=== PATIENT | female | born 1990 | race African-American/Black ===

== ENCOUNTER 2019-09-28 08:42 | Outpatient (RCR) | payer BC, SELFPAY ==
[2019-09-28 10:25] LABS: Hemoglobin 10.2 g/dL (12.0-15.0)
[2019-09-28 10:31] LABS: Glucose 1 Hour PP 50gm Dose 111 mg/dL
[2019-09-28 11:10] LABS: HIV 1/2 Ab P24 Ag Result Negative (Negative)
[2019-09-29 07:30] LABS: Rapid Plasma Reagin Non-Reactive (NonReactive)
[2019-09-29] MEDS: RHO(D) IMMUNE GLOBULIN 300 MCG SYRINGE IM (12:10)
== END 2019-12-27 23:59 | disposition home or self-care (01) ==
LOC: ANHLAB 08:42
PROVIDERS: Visit Provider Advanced Practice Midwife
DX: Z29.13 Encounter for prophylactic Rho(D) immune globulin (principal); Z11.4 Encounter for screening for human immunodeficiency virus [HIV]; O36.0130 Maternal care for anti-D [Rh] antibodies, third trimester, not applicable or unspecified; Z3A.00 Weeks of gestation of pregnancy not specified
CPT/HCPCS: 36415; 82947; 85014; 85018; 85461; 86592; 86703; 90384; 96372; G0432; J2790

== ENCOUNTER 2019-12-17 04:55 | Inpatient (IN) | payer BC, SELFPAY ==
[2019-12-17] VITALS (85 sets, daily range): BP systolic 80–133; BP diastolic 36–108; PULSE 56–109; RESP 12; TEMP 36.7–37.3; O2SAT 98–100; BMI 34.3
--- NOTE | 2019-12-17 04:55 | LDADM ---
This patient, Shirley Shetty, was admitted to Labor/Delivery/Recovery 107 on 12/17/19 at 04:55. Plans for labor, pain management and were discussed with patient. Patient/family oriented to hospital policies and general routines including ID bracelet, bed and alarms, visiting hours, pain management, procedures, bathroom and other care routines, personal items, smoking policy, room service/diet and guest tray routines, infant security routines, and visiting hours. Patient/Family are encouraged to report perceived risks to care and to ask questions if they do not understand what they are told or what they should do. See OBIX for further documentation.
[2019-12-17 05:44] LABS: Basophils Percent Auto 0.4 % (0.2-1.2); Eosinophils Absolute Auto 0.1 K/mm3 (0-0.3); Eosinophils Percent Auto 0.7 % (0-4.4); Hematocrit 33.7 % (37.0-47.0); Hemoglobin 11.4 g/dL (12.0-15.0); Immature Granulocyte Absolute 0.04 K/mm3 (0.00-0.031); Immature Granulocyte Percent A 0.4 % (0-0.5); Lymphocytes Absolute Auto 2.26 K/mm3 (0.9-3.2); Lymphocytes Percent Auto 22.9 % (18.3-44.2); Mean Corpuscular HGB Conc 33.8 g/dl (32-36); Mean Corpuscular Hemoglobin 28.6 pg (26-34); Mean Corpuscular Volume 84.5 fl (80-100); Mean Platelet Volume 11.7 fl (7.4-10.4); Monocytes Absolute Auto 0.7 K/mm3 (0.1-0.6); Monocytes Percent Auto 7.5 % (2.6-8.5); Neutrophils Absolute Auto 6.7 K/mm3 (1.3-6.7); Neutrophils Percent Auto 68.1 % (45.5-73.1); Platelet Count Result 215 k/mm3 (150-375); Red Blood Count 3.99 M/mm3 (4.2-5.4); Red Cell Distribution Width 13.3 % (11.5-14.5); White Blood Count 9.9 K/mm3 (4.5-10.0)
[2019-12-17] MEDS: ONDANSETRON INJ 4 MG/2 ML VIAL IV PUSH ×2 (05:48→14:34)
--- NOTE | 2019-12-17 08:09 | WPDOBADMIT ---
Obstetrics - Admit Note Admission Note: 29 y/o G1 here in spontaneous labor. Pt desires minimal intervention at this time Cervix 3/100/-2 per nurse exam Anticiapte record reviewed. No pertinent additions to the history and/or any subsequent changes in the physical findings that are not consistent with the expected course of the were found. Additions to the history and/or subsequent changes in the physical findings follow. None.
[2019-12-17] MEDS: LACTATED RINGERS 1,000 ML 125 ML IV CONT ×3 (08:37→14:34)
--- NOTE | 2019-12-17 09:13 | WPDANESEPP ---
Anes - Eval Pre Procedure Procedure: labor pain management Date/Time: 12/17/19 09:13 Surgeon: Louis Preop Diagnosis: Pain during labor Pre Op Diagnosis: Contractions Patient Data Age: 29 Gender: F Height: 5 ft 3 in Weight: 88 kg Last Vital Signs Pulse 77 12/17/19 05:32 BP 120/72 12/17/19 05:32 Allergies Allergy/AdvReac Type Severity Reaction Status Date / Time No Known Allergies Allergy Verified 11/24/19 13:38 Home Medications Medication Instructions Recorded Confirmed Type PNV cmb#95-ferrous fumarate-FA 1 tablet PO DAILY 11/24/19 11/24/19 History [] Laboratory Tests 12/17/19 12/17/19 12/17/19 05:32 05:32 05:32 WBC 9.9 K/mm3 K/mm3 (4.5-10.0) RBC 3.99 M/mm3 L M/mm3 (4.2-5.4) Hgb 11.4 g/dL L g/dL (12.0-15.0) Hct 33.7 % L % (37.0-47.0) MCV 84.5 fl fl (80-100) MCH 28.6 pg pg (26-34) MCHC 33.8 g/dl g/dl (32-36) RDW 13.3 % % (11.5-14.5) Plt Count 215 k/mm3 k/mm3 (150-375) MPV 11.7 fl H fl (7.4-10.4) Immature Gran % (Auto) 0.4 % % (0-0.5) Neut % (Auto) 68.1 % % (45.5-73.1) Lymph % (Auto) 22.9 % % (18.3-44.2) [place] % (Auto) 7.5 % % (2.6-8.5) Eos % (Auto) 0.7 % % (0-4.4) Baso % (Auto) 0.4 % % (0.2-1.2) Lymph # (Auto) 2.26 K/mm3 K/mm3 (0.9-3.2) [place] # (Auto) 0.7 K/mm3 H K/mm3 (0.1-0.6) Eos # (Auto) 0.1 K/mm3 K/mm3 (0-0.3) Baso # (Auto) 0.0 K/mm3 K/mm3 (0.0-0.1) Abs Immat Gran (auto) 0.04 K/mm3 H K/mm3 (0.00-0.031) Absolute Neuts (auto) 6.7 K/mm3 K/mm3 (1.3-6.7) Absolute Nucleated RBC 0.0 K/mm3 K/mm3 (0.0-0.012) Nucleated RBC % 0.0 % % (0.0-0.2) RPR Pending Blood Type B Negative Antibody Screen Negative : patient denies Patient hx anesthesia problems: none Family hx anesthesia problems: none PMF Family History Family History (Updated 11/24/19 @ 13:41 by Marina Maguire RN) Mother Cervical cancer Hypertension Grandparent Pancreas cancer Social History Social History Smoking status: Never smoker Substance use: never Spiritual care concerns: No Exam Day of Procedure 12/17/19 09:13
[2019-12-17] MEDS: PHENYLEPHRINE 1,000 MCG/10 ML SYRINGE 100 MCG IV PUSH (10:34)
--- NOTE | 2019-12-17 11:18 | PM.OBPNLAB ---
Pain Control Date/time seen: 12/17/19 11:18 Pt comfortable with epidural AROM moderate amount of light meconium stained fluid Peds notified Anticipate
[2019-12-17 12:45] LABS: Rapid Plasma Reagin Non-Reactive (NonReactive)
[2019-12-17] MEDS: OXYTOCIN 30 UNITS/NS 500 ML 30 UNITS/500 ML BAG 125 UNITS IV CONT (14:59)
--- NOTE | 2019-12-17 18:06 | PM.OBPRVD ---
OB - Delivery Note Procedure Delivery date: 12/17/19 events: Meconium Stained Fluid Intrapartal events: None Induction method: none Delivery augmentation: rupture of membranes Delivery monitor: external FHT and external uterine Episiotomy description: None Laceration description: Vaginal - 1st Degree Estimated blood loss (mL): 174 Anesthesia type: Epidural Baby Date of : 12/17/19 Time of : 17:44 Weeks of gestation at delivery: 40 gender: Male presentation: vertex position: Left Occiput Anterior Placenta delivery description: Spontaneous score one minute: 5 score five minutes: 8 Narrative: Meconium fluid. Peds present for delivery. At delivery infant had cord wrapped in hands. not vigorous at delivery. Cord clamped and handed off to nursery staff. Cord gasses collected and handed off to staff. Mother and baby in stable condition.
[2019-12-17] MEDS: WITCH HAZEL 40 PADS 1 PAD TOPICAL (19:59)
[2019-12-17] MEDS: BENZOCAINE 20% AER SPR (*SP) 56 GM CAN 1 SPRAY TOPICAL (19:59)
[2019-12-17] MEDS: IBUPROFEN 600 MG TABLET PO (20:44)
--- NOTE | 2019-12-17 21:37 | PC.NURSE ---
pt to floor per wheelchair accompanied by baby in crib and staff. Floor routines and plan of care explained to pt and she voices understanding. Mom encouraged to make needs and concerns known to staff.
[2019-12-18 05:34] LABS: Hemoglobin 9.3 g/dL (12.0-15.0)
[2019-12-18] MEDS: MULTIVIT/MIN/PREN/FOL AC/IRON TABLET 1 TAB PO (07:06)
[2019-12-18] MEDS: WITCH HAZEL 40 PADS 1 PAD TOPICAL (07:06)
[2019-12-18] MEDS: BENZOCAINE 20% AER SPR (*SP) 56 GM CAN 1 SPRAY TOPICAL (07:06)
[2019-12-18] MEDS: POLYSACCHARIDE IRON COMPLEX 150 MG CAPSULE PO ×2 (07:07→20:32)
[2019-12-18] MEDS: DOCUSATE SODIUM 100 MG CAPSULE PO ×2 (07:08→20:37)
[2019-12-18] MEDS: IBUPROFEN 600 MG TABLET PO ×3 (07:08→20:32)
[2019-12-18 07:31] VITALS: BP 105/75; PULSE 72; RESP 18; TEMP 36.5
--- NOTE | 2019-12-18 07:50 | PC.NURSE ---
Consulted with patient, mother reports infant is latching, he is on and off during feedings, she has some tenderness during feedings. Reviewed infant feeding cues, frequencies, duration of feedings, feeding elimination flow sheet, and signs of adequate intake. Demonstrated stimulation techniques to wake infant for feeding. Assisted with to breast. Demonstrated self expression, mother can freely express large amounts of colostrum. Reviewed positioning/alignment in cross cradle, holding breast in U hold and guided asymmetrical latch on. Discussed rational for each. Several attempts before was able to latch correctly. nursed eagerly, with steady draws and frequent swallowing noted. Reviewed signs of a correct latch, effective nursing and suck swallow ratio. would pull back during feedings. Advised to give slight resistance to keep infant at breast. Demonstrated how to adjust latch more deeply while feeding. Suggested to stimulate while feeding to keep awake and nursing effectively for increased intake and to assist with maintaining deep latch. was able to maintain latch without discomfort to mother. Nipple care reviewed. Instructed mother to call out for RN assistance if she is unable to latch infant for feeding or she has discomfort with nursing. Instructed feeding should be initiated three hours from start of last feeding or if feeding cues are noted before. Mother voiced understanding of information shared.
--- NOTE | 2019-12-18 07:55 | PM.OBPNVD ---
OB - PN: Subj Subjective Date/time seen: 12/18/19 07:55 Patient comments: no complaints, pain well controlled and other (Lochia similar to menses) [place] baby status: doing well OB - PN: Obj Data Labs CBC & Chem 7: 12/18/19 03:51 Labs: Laboratory Results - last 24 hr 12/17/19 12/18/19 12/18/19 05:32 03:51 03:51 Hgb 9.3 L Hct 27.0 L RPR Non-reactive Blood Type B Negative Antibody Screen TNP Screen Negative Baby's Blood Type B pos Baby's BILL Negative Doses of RhIg Required 1 OB - PN A/P Plan day: 1 (s/p vaginal delivery, doing well) Plan: routine care Time Spent With Patient Time: Total time spent is greater than 50% in coordination of care (as documented) at patient's floor/unit and/or counseling patient: Exam Const: General: no acute distress GI: Inspection: other (Fundus firm and nontender at umbilicus) GI Palp: Yes Soft to palpation and No Tenderness to palpation present (GI) Extrem: General: no edema
--- NOTE | 2019-12-18 10:17 | WPDANLDPN2 ---
Anes-Prog Note L&D Date/Time: 12/18/19 10:17 Comfortable throughout: labor Neuraxial method: epidural Epidural/Spinal procedure site: clean & non-tender Neuro status: Neuro function grossly intact. Cardiovascular status: normal Respiratory status: normal Airway patency: baseline Mental status: baseline Post-Op hydration status: normal Vital Signs: Last Vital Signs Temp 97.7 F 12/18/19 07:31 Pulse 72 12/18/19 07:31 Resp 18 12/18/19 07:31 BP 105/75 12/18/19 07:31 Pulse Ox 99 12/17/19 10:26 I/O: Intake & Output 12/17/19 12/18/19 12/18/19 23:59 07:59 15:59 Intake Total 1100 Output Total 685 Balance 415 Post-procedural complaints: none Patient feedback: Patient satisfied with anesthetic care.
[2019-12-18] MEDS: RHO(D) IMMUNE GLOBULIN 300 MCG SYRINGE IM (13:24)
--- NOTE | 2019-12-18 14:15 | PC.NURSE ---
Upon entering mother has to breast, with correct positioning/alignment. Infant is latched deeply nursing with long draws and freq swallowing noted. Reviewed transition to breast milk, signs of adequate intake, and engorgement/relief. Instructed to call ICP if intake/output less than required. Reviewed regular medications mother is taking. Information provided per Marlys. Reviewed community resources on the [facility] website and in the Mom/Baby guide. Information on outpatient services provided. Mother has no further questions at this time.
[2019-12-18 20:40] VITALS: BP 101/61; PULSE 82; RESP 16; TEMP 36.8; O2SAT 100
[2019-12-19] MEDS: IBUPROFEN 600 MG TABLET PO ×2 (05:31→14:08)
[2019-12-19 08:00] VITALS: BP 104/66; PULSE 72; RESP 18; TEMP 36.8
--- NOTE | 2019-12-19 08:00 | PC.NURSE ---
Patient viewed the discharge video Mother & Baby Care, The First Two Weeks . Patient was given the opportunity and encouraged to ask questions. Patient verbalized understanding of information shared and has been given the mother/baby guide for home reference.
[2019-12-19] MEDS: DOCUSATE SODIUM 100 MG CAPSULE PO (08:27)
[2019-12-19] MEDS: WITCH HAZEL 40 PADS 1 PAD TOPICAL (08:27)
[2019-12-19] MEDS: BENZOCAINE 20% AER SPR (*SP) 56 GM CAN 1 SPRAY TOPICAL (08:27)
[2019-12-19] MEDS: POLYSACCHARIDE IRON COMPLEX 150 MG CAPSULE PO (08:27)
[2019-12-19] MEDS: MULTIVIT/MIN/PREN/FOL AC/IRON TABLET 1 TAB PO (08:28)
--- NOTE | 2019-12-19 10:33 | P.PNOB_ITS ---
OB - PN: Subj Subjective Date/time seen: 12/19/19 10:33 Patient comments: no complaints, pain well controlled and other (Lochia similar to menses) [place] baby status: doing well OB - PN: Obj Data Labs CBC & Chem 7: 12/18/19 03:51 Labs: Laboratory Results - last 24 hr 12/18/19 03:51 Blood Type B Negative Antibody Screen TNP Screen Negative Baby's Blood Type B pos Baby's BILL Negative Doses of RhIg Required 1 OB - PN A/P Plan day: 2 (s/p vaginal delivery, doing well) Plan: routine care, discharge home and other (Follow up in office in 4 weeks) Time Spent With Patient Time: Total time spent is greater than 50% in coordination of care (as documented) at patient's floor/unit and/or counseling patient: Exam Const: General: no acute distress GI: Inspection: other (Fundus firm and nontender below umbilicus) GI Palp: Yes Soft to palpation and No Tenderness to palpation present (GI) Extrem: General: no edema
--- NOTE | 2019-12-19 11:17 | PC.NURSE ---
Self care and infant care discharge instructions given including when to return to follow up visit date and time. Parents verbalized understanding. No questions or concerns verbalized. Very pleasant and cooperative. FOB at side.
[2019-12-19] MEDS: TETANUS,DIPHTHERIA,AC PERTUSSIS ADULT (0.5 ML) BOOSTRIX IM (14:07)
[2019-12-21 09:01] VITALS: BP 115/67; PULSE 74; RESP 20; TEMP 36.6; O2SAT 99
--- NOTE | 2019-12-26 21:42 | PM.OBDSVD ---
DS: Admitting Diagnosis Admitting Diagnosis Admitting Diagnosis: Encounter for supervision of normal , unspecified, third trimester OB - DS: Summary OB Procedures : None OB Procedures Intrapartum: Spontaneous Vag Delivery OB Procedures: : None Time Spent with Patient Time attestation: Total time spent providing and/or coordinating discharge services: DS: Data Data Completed and Pending Completed studies during hospitalization: Pending at discharge 12/17/19 19:30 Surgical [PTH] Routine Discharge Plan Discharge Attending physician on discharge: Arnold Myers Consulting providers: Sadia Nogueira Discharging Clinician: Treva Nguyen Patient Disposition: Home, Self-Care Activity: may shower and pelvic rest Diet: regular Discharge Instructions: Education: Mom and Baby Guide Given to: Mother Follow-Up: Call your delivering provider's office for an appointment to be seen in: 6 Weeks Mom and baby should come to the [facility] for the follow-up appointment. Appointment Date/Time: December 21, 2019 at 9:00 am What to expect at your follow-up visit: Blood Pressure Check Physical Assessment Call [phone] if you are unable to keep your appointment time. BREAST CARE: 1. Wear a snug supportive bra. 2. For engorgement discomfort: Breast Feeding: A. Apply warm moist washcloths B. Express milk as needed to relieve engorgement C. Wear loose clothing 3. For sore nipples: A. Identify correct latch-on B. Apply warm moist washcloths before and after nursing C. Air dry nipples after nursing D. May apply Lansinoh cream to nipples EPISIOTOMY/PERINEAL CARE: 1. Until bleeding stops, use your charley bottle after urinating 2. Change your pad frequently throughout the day 3. You may take sitz baths several times a day (fill your bathtub with warm water and soak for 20 minutes.) Do NOT bathe in the water 4. No tub baths until seen by your physician - You may shower ACTIVITY: 1. Rest as much as possible. 2. Do not exercise or lift anything heavier than your baby (such as laundry or other children.) 3. Avoid stairs or driving as much as possible. 4. Do not put anything into the vagina. No douching, tampons, or sexual activity until seen by physician. NOTIFY PHYSICIAN IF YOU HAVE ANY QUESTIONS OR IF ANY OF THE FOLLOWING SYMPTOMS OCCUR: 1. If your episiotomy becomes red, swollen, or more painful than what you have experienced in the hospital. 2. If your vaginal bleeding becomes foul smelling. 3. If your vaginal bleeding becomes more heavy than a period or if your bleeding changes from pink to bright red. However, you may pass an occasional walnut-sized clot once or twice for the first week . 4. If you experience a sharp, shooting pain in you calves. 5. If you discover a hard, reddened area on your breast or if you experience flu-like symptoms. DIET: 1. Eat regular, well-balanced meals. 2. Drink plenty of fluids daily. If , drink to thirst. Patient Instructions: Antibiotic Form Stand Alone Forms: General Discharge Information Follow-up/Referrals: Sadia Nogueira CNM [Certified Nurse Knifeman] - 4 Weeks Discharge Medications: New ibuprofen 600 mg Tablet 600 mg PO Q6H PRN (Reason: Cramping) Qty: 60 RF: 0 Continued PNV cmb#95-ferrous fumarate-FA [] 28 mg iron- 800 mcg Tablet 1 tablet PO DAILY RF: 0 Date of admission: 12/17/19 04:55 Primary Care Provider: PHYSICIAN,SKATING R[employer] MAKER Admitting Provider: Treva Nguyen Discharge Date/Time: 12/19/19 15:05 Attending physician on admission: Treva Nguyen
== END 2019-12-19 15:05 | disposition home or self-care (01) | DRG 807 ==
LOC: ANHLDR 05:23 → ANHOB2 12-19 10:34 → ANHLDR 12-21 20:48 → ANHOB2 12-21 20:48
PROVIDERS: Advanced Practice Midwife; Admitting Provider Obstetrics & Gynecology; Visit Provider Obstetrics & Gynecology
DX: O77.0 Labor and delivery complicated by meconium in amniotic fluid (principal); Z37.0 Single live birth; Z3A.40 40 weeks gestation of pregnancy; O70.0 First degree perineal laceration during delivery; O69.2XX0 Labor and delivery complicated by other cord entanglement, with compression, not applicable or unspecified; O36.8330 Maternal care for abnormalities of the fetal heart rate or rhythm, third trimester, not applicable or unspecified
CPT/HCPCS: 36415; 85014; 85018; 85025; 85461; 86592; 86850; 86900; 86901; 88307; 90384; 90715; A9270; J2370; J2405; J2590; J2790; J2795; J3010; J7120

== ENCOUNTER 2019-12-29 12:11 | Outpatient (RCR) | payer BC, SELFPAY ==
--- NOTE | 2019-12-29 12:30 | PC.NURSE ---
IN 1110 OUT 1205 HISTORY: Pt. delivered at [facility] at 40 weeks. had no complications after delivery. Mother had no complications after delivery. Infant is now 12 days/weeks old. Infant appears to be well cared for. has been seen by ICP as scheduled. Infant last seen by ICP at 1 week of line, will see again on 12/24. Mother reports: Infant is eagerly latching for all feeding, pain began when her milk came in and has steadily increased, more on left than right. Mother will pump and bottle feed at times due to pain. Mother feels she has an adequate milk supply, infant is satisfied after feedings. is sleepy while at the breast, feeding for 40-50 minutes per feeding, with needing to wake infant freq during the feeding. Mother wishes: Resolve pain issue Currently at 6 wets per day and 2-3 yellow seedy stools per day. weight: 6#13 Discharge weight: 6#9 Last Weight: 7#2 at 1 week Pre feeding weight: 3359 Post feeding weight: 3399 OBSERVATION: Mother puts to breast using the cradle position, allowing to latch shallow to breast. Mother quickly reports pain. is shallow with short chewy sucks, releasing latch while feeding and returning with a shallow latch. Assisted with to breast. Reviewed positioning/alignment in cross cradle, holding breast in U hold and guided asymmetrical latch on. Discussed the rational for each. Infant was able to latch correctly. nursed eagerly, with steady draws and frequent swallowing noted. Reviewed signs of a correct latch, effective nursing and suck swallow ratio. Infant was able to maintain latch without discomfort to mother. Mother reports she can feel the difference in latch and positioning/alignment reporting only slight tenderness. Nipple care reviewed. Suggested mother stimulate infant while feeding to keep awake and effectively feeding and to assist with maintaining a deep latch. Demonstrated how to adjust latch more deeply while feeding. Mother feels is more eagerly nursing. Discussed increased milk flow with deep latch and may not feed as long with deeper latch. PLAN: Mother will follow above feeding plan using techniques for deeper latch. Mother will call with further questions or concerns.
== END 2020-02-17 08:31 | disposition home or self-care (01) ==
LOC: ANHOBOP 12:11
PROVIDERS: Visit Provider Pediatrics
DX: Z39.1 Encounter for care and examination of lactating mother (principal)
CPT/HCPCS: 99212; G0463

== ENCOUNTER → 2021-06-08 08:21 | Outpatient (CLI) | payer BC, SELFPAY ==
[2021-06-08 20:56] LABS: SARS-CoV-2 RNA PCR Negative
== END ==
PROVIDERS: Visit Provider Obstetrics & Gynecology
DX: R05.3 Chronic cough (principal); Z20.822 Contact with and (suspected) exposure to COVID-19
CPT/HCPCS: C9803; U0003; U0005

== ENCOUNTER 2021-07-13 11:36 | Outpatient (CLI) | payer BC, SELFPAY ==
[2021-07-13 13:42] LABS: Hematocrit 29.6 % (37.0-47.0); Hemoglobin 9.8 g/dL (12.0-15.0)
[2021-07-13 13:54] LABS: Glucose 1 Hour PP 50gm Dose 108 mg/dL
[2021-07-13 14:35] LABS: HIV 1/2 Ab P24 Ag Result Negative (Negative)
[2021-07-14 06:08] LABS: Rapid Plasma Reagin Non-Reactive (NonReactive)
== END 2021-07-13 11:37 | disposition home or self-care (01) ==
LOC: ANHLAB 11:40
PROVIDERS: Visit Provider Obstetrics & Gynecology
DX: O36.0130 Maternal care for anti-D [Rh] antibodies, third trimester, not applicable or unspecified (principal); Z3A.00 Weeks of gestation of pregnancy not specified
CPT/HCPCS: 36415; 82947; 85014; 85018; 85461; 86592; 86703; G0432

== ENCOUNTER 2021-07-25 15:50 | Outpatient (RCR) | payer BC, SELFPAY ==
[2021-07-26] MEDS: RHO(D) IMMUNE GLOBULIN 300 MCG/2 ML SYRINGE IM (17:09)
== END 2021-10-23 23:59 | disposition home or self-care (01) ==
LOC: ANHLAB 15:50
PROVIDERS: Visit Provider Obstetrics & Gynecology
DX: Z36.89 Encounter for other specified antenatal screening (principal); Z29.13 Encounter for prophylactic Rho(D) immune globulin; O36.0130 Maternal care for anti-D [Rh] antibodies, third trimester, not applicable or unspecified; Z3A.00 Weeks of gestation of pregnancy not specified
CPT/HCPCS: 36415; 85461; 90384; 96372; J2790

== ENCOUNTER 2021-10-01 02:51 | Inpatient (IN) | payer BC, SELFPAY ==
--- NOTE | 2021-09-20 15:54 | PC.NURSE ---
Verified with OR schedule--C/S on 10/03/21 at 0730 for breech Patient states Dr Forrest is going to do another ultrasound for position next week ,if baby is head down she is going to cancel the surgery Patient given requisition for lab draw on 10/02/21
[2021-10-01] VITALS (56 sets, daily range): BP systolic 79–119; BP diastolic 40–78; PULSE 31–82; RESP 12–22; TEMP 35.9–36.8; O2SAT 95–100; BMI 34.0
--- OUTSIDE RECORDS SUMMARY | 2021-10-01 03:12 | XMS_ITS | Encounter Summary ---
:1990 Author Care Team Providers Name Role Phone Buddy Guzman Primary Care Provider [phone] Reason for Visit OB visit OB [id number] EDC 2021 LMP 01/03/2021 Assessment and Plan 1. Routine care Discussion Note: None recorded.Patient educational handouts: No information available. Plan of Care Reminders Provider Appointments Ob Routine Franny Mel 10/02/2021 MD Lon 10:15AM ? SURG Franny Mel CSection 10/03/2021 MD Lon 7:30AM ? Surg Post Op Franny Mel 2021 MD Lon 9:30AM Lab None ? ? recorded. Referral None ? ? recorded. Procedures None ? ? recorded. Surgeries None ? ? recorded. Imaging None ? ? recorded. Medications Name Start Date ? ? ondansetron 8 mg disintegrating tablet ? Place 1 tablet twice a day by translingual route. ? Medications Administered None recorded. Vitals Height Weight BMI Blood Pressure 5 ft 2.75 in 196 lbs 35 kg/m2 116/77 mm[Hg] Results Lab Results None record
--- OUTSIDE RECORDS SUMMARY | 2021-10-01 03:12 | XMS_ITS | Encounter Summary ---
:1990 Author Care Team Providers Name Role Phone Buddy Guzman Primary Care Provider [phone] Reason for Visit None recorded. Assessment and Plan 1. [place] breech presentation ? US, obstetric, limited Discussion Note: None recorded.Patient educational handouts: No information available. Plan of Care Reminders Provider Appointments Ob Routine Franny Mel 10/02/2021 MD Lon 10:15AM ? SURG Franny Mel CSection 10/03/2021 MD Lon 7:30AM ? Surg Post Op Franny Mel 2021 MD Lon 9:30AM Lab None ? ? recorded. Referral None ? ? recorded. Procedures None ? ? recorded. Surgeries None ? ? recorded. Imaging , [place] [facility], Limited 09/25/2021 Medications Name Start Date ? ? ondansetron 8 mg disintegrating tablet ? Place 1 tablet twice a day by translingual route. ? Medications Administered None recorded. Vitals None recorded. Results Lab Results None recorded. Allergies Code Code System Name
--- OUTSIDE RECORDS SUMMARY | 2021-10-01 03:12 | XMS_ITS ---
:1990 Author Care Team Providers Name Role Phone HESHAM DOUGLASS Primary Care Provider [phone] Allergies Code Code System Name Reaction Severity Status Onset NKDA ? Medications Name Status Start Date Stop Date ? ? albuterol sulfate HFA 90 Completed ? 022 mcg/actuation aerosol inhaler azithromycin 250 mg tablet Completed ? 07/17 TAKE 2 TABLETS BY MOUTH ON DAY 1, AND T HEN TAKE 1 TABLET BY MOUTH ONCE A DAY ON DAY 2 THROUGH DAY 5 erythromycin 5 mg/gram (0.5 %) eye ointment Completed ? 03/03/2021 APPLY 1/2 INCH IN BOTH EYES TWICE DAILY Flagyl 500 mg tablet Completed 10/15/2016 10/20/2018 take 1 tablet by oral route every 12 hours ID NOW COVID-19 Test Kit Completed ? 021 TEST DIRECTED Synthroid 25 mcg tablet Active 12/08/2018 Not avai lable take 1 tablet by oral route every day mometasone 0.1 % topical ointment Completed ? 03/03/2021 APPLY TO THE AFFECTED AREA DAILY NEEDED ondansetron 8 mg disintegrating Active ? Not available tablet Ortho-Cyclen (28) 0.25 mg-35 mcg tablet Completed 10/11/19 16 10/20/2018 take 1 tablet by oral route every day Active ? Not available Transderm-Scop 1 mg over 3 days transdermal patch Completed 10/11/2015 10/20/2018 apply 1 patch by transdermal route to t he hairless area behind 1 ear at least 4 hr before effect is required; reapply every 3 days as needed codeine 10 mg-guaifenesin 100 mg/5 mL oral liquid Active 06/08/2019 Not available
--- OUTSIDE RECORDS SUMMARY | 2021-10-01 03:13 | XMS_ITS | Encounter Summary ---
:1990 Author Care Team Providers Name Role Phone Buddy Guzman Primary Care Provider [phone] Reason for Visit None recorded. Assessment and Plan 1. Uterine fibroids affecting pr egnancy ? US, obstetric, follow-up Discussion Note: None recorded.Patient educational handouts: No [...] Surgeries None ? ? recorded. Imaging , [place] [facility], Follow-up 09/12/2021 Medications Name Start Date ? ? ondansetron 8 mg disintegrating tablet ? Place 1 tablet twice a day by translingual route. ? Medications Administered None recorded. Vitals None recorded. Results Lab Results None recorded. Allergies Code Co
--- OUTSIDE RECORDS SUMMARY | 2021-10-01 03:13 | XMS_ITS | Encounter Summary ---
:1990 Author Care Team Providers Name Role Phone Buddy Guzman Primary Care Provider [phone] Reason for Visit None recorded. Assessment and [...] Surgeries None ? ? recorded. Imaging , [place] [facility], Follow-up 08/15/2021 Medications Name Start Date ? ? ondansetron 8 mg disintegrating tablet ? Place 1 tablet twice a day by translingual route. ? Medications Administered None recorded. Vitals None recorded. Results Lab Results None recorded. Allergies Code Co
--- OUTSIDE RECORDS SUMMARY | 2021-10-01 03:13 | XMS_ITS | Encounter Summary ---
:1990 Author Care Team Providers Name Role Phone Buddy Guzman Primary Care Provider [phone] Reason for Visit OB visit [id number] Assessment and Plan 1. Routine care Discussion Note: None recorded.Patient educational handouts: No information available. Plan of Care Reminders Provider Appointments Ob Routine Franny Mel 10/02/2021 MD Lon 10:15AM ? SURG Franny Mle CSection 10/03/2021 MD Lon 7:30AM ? Surg [...] BMI Blood Pressure 5 ft 2.75 in 194 lbs 34.6 kg/m2 107/70 mm[Hg] Results Lab Results None recorded. Allergies
--- OUTSIDE RECORDS SUMMARY | 2021-10-01 03:13 | XMS_ITS | Encounter Summary ---
:1990 Author Care Team Providers Name Role Phone Buddy Guzman Primary Care Provider [phone] Reason for Visit OB visit OB [id number] EDC 2021 LMP 01/31/2021 Assessment and Plan None recorded.Discussion Note: None recorded.Patient educational handouts: No information [...] BMI Blood Pressure 5 ft 2.75 in 197 lbs 35.2 kg/m2 107/69 mm[Hg] Results Lab Results None recorded. Allergies Code Code System Name
--- OUTSIDE RECORDS SUMMARY | 2021-10-01 03:13 | XMS_ITS | Encounter Summary ---
:1990 Author Care Team Providers Name Role Phone Buddy Guzman Primary Care Provider [phone] Reason for Visit OB visit Assessment and Plan 1. Routine care Discussion [...] ft 2.75 in 194 lbs 34.6 kg/m2 106/69 mm[Hg] Results Lab Results None recorded. Allergies Code Code System Name Reac
--- OUTSIDE RECORDS SUMMARY | 2021-10-01 03:13 | XMS_ITS | Encounter Summary ---
:1990 Author Care Team Providers Name Role Phone Buddy Guzman Primary Care Provider [phone] Reason for Visit OB visit Assessment and Plan 1. Routine care 2. Breech presentation 3. Uterine leiomyoma Discussion Note: None recorded.Patient educational handouts: No [...] BMI Blood Pressure 5 ft 2.75 in 193 lbs 34.5 kg/m2 110/70 mm[Hg] Results Lab Resu
--- OUTSIDE RECORDS SUMMARY | 2021-10-01 03:13 | XMS_ITS | Encounter Summary ---
:1990 Author Care Team Providers Name Role Phone Buddy Guzman Primary Care Provider [phone] Reason for Visit OB visit OB [id number] EDC 2021 LMP 01/03/2021 Assessment and Plan Assessment Note Patient is 30___weeks . Dis cussed plan. 1. Routine care Discussion Note: None recorded.Patient [...] BMI Blood Pressure 5 ft 2.75 in 192 lbs 3
--- NOTE | 2021-10-01 03:59 | LDADM ---
This patient, Shirley Shetty, was admitted to Labor/Delivery/Recovery 120 on 10/01/21 at 02:51. Plans for section, pain management and were discussed with patient. Patient/family oriented to hospital policies and general routines including ID bracelet, bed and alarms, visiting hours, pain management, procedures, bathroom and other care routines, personal items, smoking policy, room service/diet and guest tray routines, security routines, and visiting hours. Patient/Family are encouraged to report perceived risks to care and to ask questions if they do not understand what they are told or what they should do. See OBIX for further documentation.
[2021-10-01 04:01] LABS: Basophils Absolute Auto 0.1 K/mm3 (0.0-0.1); Basophils Percent Auto 0.5 % (0.2-1.2); Eosinophils Absolute Auto 0.1 K/mm3 (0-0.3); Eosinophils Percent Auto 0.8 % (0-4.4); Hematocrit 31.5 % (37.0-47.0); Hemoglobin 10.2 g/dL (12.0-15.0); Immature Granulocyte Absolute 0.03 K/mm3 (0.00-0.031); Immature Granulocyte Percent A 0.3 % (0-0.5); Lymphocytes Absolute Auto 2.75 K/mm3 (0.9-3.2); Lymphocytes Percent Auto 30.2 % (18.3-44.2); Mean Corpuscular HGB Conc 32.4 g/dl (32-36); Mean Corpuscular Hemoglobin 27.4 pg (26-34); Mean Corpuscular Volume 84.7 fl (80-100); Mean Platelet Volume 11.1 fl (7.4-10.4); Monocytes Absolute Auto 0.7 K/mm3 (0.1-0.6); Monocytes Percent Auto 7.7 % (2.6-8.5); Neutrophils Absolute Auto 5.5 K/mm3 (1.3-6.7); Neutrophils Percent Auto 60.5 % (45.5-73.1); Platelet Count Result 241 k/mm3 (150-375); Red Blood Count 3.72 M/mm3 (4.2-5.4); Red Cell Distribution Width 14.3 % (11.5-14.5); White Blood Count 9.1 K/mm3 (4.5-10.0)
[2021-10-01] MEDS: LACTATED RINGERS 1,000 ML 999 ML IV CONT (04:59)
[2021-10-01] MEDS: ceFAZolin 2 GM/D5W 50 ML 2 GM/50 ML BAG IVPB (05:00)
--- NOTE | 2021-10-01 05:18 | PM.IMHP ---
H&P: HPI History of Present Illness Date/Time: 10/01/21 05:18This patient is a 30-year-old multipara at near term with a breech presentation and spontaneous rupture membranes. She is now in active labor with feet in the vagina we are moving to urgently perform delivery. Chief Complaint: Term gestation, breech, labor Review of Systems Review of Systems: All systems reviewed & are unremarkable except as noted in HPI and below Constitutional: Constitutional: Denies chills, Denies fatigue, Denies fever(s) and Denies weakness Eyes: Eyes: Denies blurry vision, Denies change in vision, Denies loss of peripheral vision, Denies loss of vision, Denies other visual disturbances and Denies eye pain ENT: Denies vertigo, Denies dizziness, Denies hearing loss, Denies mouth pain, Denies nasal obstruction, Denies neck mass and Denies neck pain Cardiovascular: Cardiovascular: Denies chest pain, Denies diaphoresis, Denies syncope, Denies leg edema and Denies dyspnea Respiratory: Respiratory: Denies chest congestion, Denies cough, Denies hemoptysis, Denies dyspnea and Denies wheezing Gastrointestinal: Gastrointestinal: Denies abdominal pain, Denies constipation, Denies diarrhea, Denies nausea and Denies vomiting Genitourinary: Genitourinary: Denies hematuria, Denies change in libido, Denies nocturia, Denies genital lesions, Denies flank pain and Denies urinary urgency Musculoskeletal: Musculoskeletal: Denies abnormal gait, Denies back pain, Denies myalgias, Denies arthralgias, Denies joint swelling, Denies muscle weakness and Denies neck pain Integumentary/Breasts: Skin/Breast: Denies swelling, Denies breast pain, Denies breast mass, Denies dry skin, Denies nipple discharge, Denies unusual bruising and Denies jaundice Neurologic: Denies Neuro-related abnormal movements, Denies Abnormal speech present, Denies abnormal gait, Denies behavioral changes, Denies confusion, Denies vertigo, Denies dizziness, Denies syncope, Denies loss of vision, Denies memory loss, Denies convulsions and Denies weakness Psychiatric: Psychiatric: Denies abnormal sleep pattern, Denies behavioral changes, Denies change in libido, Denies confusion, Denies depression, Denies anhedonia and Denies memory loss Endocrine: Endocrine: Reports no additional endocrine complaints, Denies change in libido and Denies fatigue Hematologic/Lymphatic: Hematologic/Lymphatic: Reports no additional hematologic/lymphatic complaints Allergic/Immunologic: Allergic/Immunologic: Reports no additional allergic/immunologic complaints and Denies wheezing PMFSH Family History Family History Mother Cervical cancer Hypertension Grandparent Pancreas cancer Social History Social History Smoking status: Never smoker Second hand tobacco smoke exposure: No Alcohol intake: unknown Substance use: never Substance use type: does not use Living arrangements: with family Gender identity (if verbalized by the patient): Male Sexual Orientation (if Verbalized by the Patient): Straight or Heterosexual Spiritual care concerns: No Meds Home Medications and Allergies Home Medications Medication Instructions Recorded Confirmed Type PNV cmb#95-ferrous fumarate-FA 1 tablet PO DAILY 11/24/19 10/01/21 History [] Allergies Allergy/AdvReac Type Severity Reaction Status Date / Time No Known Allergies Allergy Verified 09/20/21 15:41 Vital Signs Vital Signs - 24 hr 10/01/21 03:15 10/01/21 03:30 Pulse Rate 77 78 Blood Pressure 107/69 119/78 Exam Const: General: cooperative, healthy appearing, comfortable and no acute distress; No confusion Orientation/consciousness: oriented to person, oriented to place, oriented to time and No confusion HENMT: Head: normal to inspection Ears: external ears normal General nose exam: Normal external nose presen
--- NOTE | 2021-10-01 05:20 | WPDHPUPDATE1 ---
History and Physical Update Update Date/Time: 10/01/21 05:20 History and Physical has been reviewed, including an updated exam of the patient. There are NO changes in the patient's condition. Risks, benefits, and alternatives have been discussed and questions answered. Patient agrees to proceed with procedure.
--- NOTE | 2021-10-01 05:32 | P.PNAN_ITS ---
Anes - Eval Pre Procedure Procedure: Operation Date: 10/03/21 07:30 Proposed Procedures p Section - Franny Forrest MD Date/Time: 10/01/21 05:32 Pre Op Diagnosis: SROM Patient Data Age: 30 Gender: F Height: 1.6 m Weight: 87 kg Last Vital Signs Pulse 78 10/01/21 03:30 BP 119/78 10/01/21 03:30 Allergies Allergy/AdvReac Type Severity Reaction Status Date / Time No Known Allergies Allergy Verified 09/20/21 15:41 Home Medications Medication Instructions Recorded Confirmed Type PNV cmb#95-ferrous fumarate-FA 1 tablet PO DAILY 11/24/19 10/01/21 History [] Laboratory Tests 10/01/21 10/01/21 03:46 03:46 WBC 9.1 K/mm3 K/mm3 (4.5-10.0) RBC 3.72 M/mm3 L M/mm3 (4.2-5.4) Hgb 10.2 g/dL L g/dL (12.0-15.0) Hct 31.5 % L % (37.0-47.0) MCV 84.7 fl fl (80-100) MCH 27.4 pg pg (26-34) MCHC 32.4 g/dl g/dl (32-36) RDW 14.3 % % (11.5-14.5) Plt Count 241 k/mm3 k/mm3 (150-375) MPV 11.1 fl H fl (7.4-10.4) Immature Gran % (Auto) 0.3 % % (0-0.5) Neut % (Auto) 60.5 % % (45.5-73.1) Lymph % (Auto) 30.2 % % (18.3-44.2) [place] % (Auto) 7.7 % % (2.6-8.5) Eos % (Auto) 0.8 % % (0-4.4) Baso % (Auto) 0.5 % % (0.2-1.2) Lymph # (Auto) 2.75 K/mm3 K/mm3 (0.9-3.2) [place] # (Auto) 0.7 K/mm3 H K/mm3 (0.1-0.6) Eos # (Auto) 0.1 K/mm3 K/mm3 (0-0.3) Baso # (Auto) 0.1 K/mm3 K/mm3 (0.0-0.1) Abs Immat Gran (auto) 0.03 K/mm3 K/mm3 (0.00-0.031) Absolute Neuts (auto) 5.5 K/mm3 K/mm3 (1.3-6.7) Absolute Nucleated RBC 0.0 K/mm3 K/mm3 (0.0-0.012) Nucleated RBC % 0.0 % % (0.0-0.2) RPR Pending Patient hx anesthesia problems: none Family hx anesthesia problems: none Results Review: All pre-operative results and documents have been reviewed as part of the pre-operative evaluation. [facility] Family History Family History Mother Cervical cancer Hypertension Grandparent Pancreas cancer Social History Social History Smoking status: Never smoker Second hand tobacco smoke exposure: No Alcohol intake: unknown Substance use: never Substance use type: does not use Living arrangements: with family Gender identity (if verbalized by the patient): Male Sexual Orientation (if Verbalized by the Patient): Straight or Heterosexual Spiritual care concerns: No Exam Day of Procedure 10/01/21 05:32
--- NOTE | 2021-10-01 06:04 | W.PM.PROC2 ---
Procedure Note - Detailed Date of Procedure 10/01/21 Pre-op Diagnosis SROM, breech, labor Post-op Diagnosis Same Procedure Performed Low-transverse section Surgeon Arnold Myers MD Anesthesia Spinal Findings Normal gestational maternal anatomy, average size infant, normal Apgars. breech Description of Procedure The patient was taken the operating room. She was prepped and draped in dorsal supine position with a leftward tilt. This was done after spinal anesthetic was applied. A low-transverse skin incision was made and carried down till of the fascia with the knife. The fascial incision was made with the knife. The fascial incision was extended laterally with Woods scissors. The fascia was tented upward superiorly and inferiorly the rectus muscles were dissected off bluntly. The rectus muscles were the midline. The preperitoneal fat and peritoneum were dissected open bluntly at the superior aspect of the rectus muscles. The peritoneal incision was extended superior and inferior with good position of bladder. The uterine incision was made with a scalpel down to the level of the amniotic cavity. The amniotic cavity was entered bluntly. The was delivered. The cord was clamped and cut and the infant was handed off to waiting pediatric staff. Cord bloods were obtained. The placenta was removed manually. The uterus was exteriorized. The uterus was cleared of all clots, debris and membranes. The uterus was closed in 0 Vicryl running lock fashion. An imbricating over a was placed along the incision line as well. The uterus was returned to the abdomen. The gutters were cleared of all clots and debris. The fascia was closed with 0 Vicryl running fashion. The subcutaneous tissue was irrigated pinpoint bleeders were cauterized. The skin was closed with subcuticular absorbable osiris. The skin incision line was covered with glue. The patient tolerated the procedure well. She has taken recovery room in stable condition. Sponge lap and needle counts were correct x2. Estimated Blood Loss 400 Drains No Packing No Pathology None sent Complications No immediate complications Condition Stable Disposition PACU
[2021-10-01] MEDS: OXYTOCIN 30 UNITS/NS 500 ML 30 UNITS/500 ML BAG 125 UNITS IV CONT (07:20)
[2021-10-01] MEDS: METOCLOPRAMIDE HCL INJ 10 MG/2 ML VIAL IV PUSH (07:20)
[2021-10-01] MEDS: DEXTROSE 5%/0.45% SOD CHL 1,000 ML 125 ML IV CONT (12:22)
[2021-10-01] MEDS: KETOROLAC 30 MG/ML VIAL (*BKC) IV PUSH ×2 (12:23→23:09)
[2021-10-01] MEDS: ONDANSETRON INJ 4 MG/2 ML VIAL IV PUSH (14:42)
--- NOTE | 2021-10-01 14:55 | OBPPTRN ---
0829 Patient transferred to post room #282 via stretcher. Support person present. Oriented to unit, room, information board, rooming in, admission packet and security measures. Patient verbalizes understanding.
[2021-10-01] MEDS: KCL 20 MEQ/D5/0.45% SOD CHL 1,000 ML 125 ML IV CONT (20:02)
[2021-10-02] MEDS: IBUPROFEN 600 MG TABLET PO ×3 (04:13→16:50)
[2021-10-02] MEDS: SIMETHICONE 80 MG TAB.CHEW PO ×5 (04:14→20:09)
[2021-10-02 04:30] VITALS: BP 105/57; PULSE 84; RESP 18; TEMP 36.8; O2SAT 100
[2021-10-02 05:36] LABS: Basophils Absolute Auto 0.1 K/mm3 (0.0-0.1); Basophils Percent Auto 0.6 % (0.2-1.2); Eosinophils Percent Auto 0.4 % (0-4.4); Hematocrit 28.1 % (37.0-47.0); Hemoglobin 9.1 g/dL (12.0-15.0); Immature Granulocyte Absolute 0.04 K/mm3 (0.00-0.031); Immature Granulocyte Percent A 0.4 % (0-0.5); Lymphocytes Absolute Auto 1.96 K/mm3 (0.9-3.2); Lymphocytes Percent Auto 18.2 % (18.3-44.2); Mean Corpuscular HGB Conc 32.4 g/dl (32-36); Mean Corpuscular Hemoglobin 27.7 pg (26-34); Mean Corpuscular Volume 85.4 fl (80-100); Mean Platelet Volume 11.5 fl (7.4-10.4); Monocytes Absolute Auto 0.7 K/mm3 (0.1-0.6); Neutrophils Percent Auto 74.4 % (45.5-73.1); Platelet Count Result 194 k/mm3 (150-375); Red Blood Count 3.29 M/mm3 (4.2-5.4); Red Cell Distribution Width 14.1 % (11.5-14.5); White Blood Count 10.8 K/mm3 (4.5-10.0)
--- NOTE | 2021-10-02 07:31 | PM.OBPNVD ---
OB - PN: Subj Subjective Date/time seen: 10/02/21 07:31 Patient comments: no complaints and pain well controlled baby status: doing well and nursing well [place] feeding status: breast and bottle feeding Narrative: POD 1 from primary CS. Doing well. Normal lochia. Eating, ambulating, butts out. tRIED TO void x1, unable. Will try again, may need straight cath this am x1. OB - PN: Obj Data Labs CBC & Chem 7: 10/02/21 04:16 Labs: Laboratory Results - last 24 hr 10/02/21 10/02/21 04:16 04:21 WBC 10.8 H RBC 3.29 L Hgb 9.1 L Hct 28.1 L MCV 85.4 MCH 27.7 MCHC 32.4 RDW 14.1 Plt Count 194 MPV 11.5 H Immature Gran % (Auto) 0.4 Neut % (Auto) 74.4 H Lymph % (Auto) 18.2 L [place] % (Auto) 6.0 Eos % (Auto) 0.4 Baso % (Auto) 0.6 Lymph # (Auto) 1.96 [place] # (Auto) 0.7 H Eos # (Auto) 0.0 Baso # (Auto) 0.1 Abs Immat Gran (auto) 0.04 H Absolute Neuts (auto) 8.0 H Absolute Nucleated RBC 0.0 Nucleated RBC % 0.0 Blood Type B Negative Antibody Screen TNP OB - PN A/P Assessment and Plan (1) delivery delivered: Code(s): O82 - Encounter for delivery without indication Status: Acute Plan day: 1 Plan: routine care Comments: straight cath if unable to void' encouraged breast feeding before supplementing Time Spent With Patient Time: Total time spent is greater than 50% in coordination of care (as documented) at patient's floor/unit and/or counseling patient: Exam Narrative: NAD abdomen soft, appropriately tender, incision CDI Extremities nontender with 1+ edema
[2021-10-02 07:45] VITALS: BP 102/67; PULSE 65; RESP 18; TEMP 36.5; O2SAT 100
[2021-10-02 08:00] VITALS: PULSE 65; RESP 18; O2SAT 100
[2021-10-02] MEDS: DOCUSATE SODIUM 100 MG CAPSULE PO ×2 (08:55→16:50)
[2021-10-02] MEDS: POLYSACCHARIDE IRON COMPLEX 150 MG CAPSULE PO ×2 (08:55→16:49)
[2021-10-02] MEDS: MULTIVIT/MIN/PREN/FOL AC/IRON TABLET 1 TAB PO (08:56)
[2021-10-02 09:13] LABS: Rapid Plasma Reagin Non-Reactive (NonReactive)
[2021-10-02] MEDS: HYDROcodone/acetaminophen (*CRX) 5-325 MG TABLET 1 TAB PO ×3 (10:38→20:09)
--- NOTE | 2021-10-02 11:54 | WPDANLDPN2 ---
Anes-Prog Note L&D Date/Time: 10/02/21 11:54 Comfortable throughout: section Neuraxial method: spinal Epidural/Spinal procedure site: clean & non-tender Neuro status: Neuro function grossly intact. Cardiovascular status: normal Respiratory status: normal Airway patency: baseline Mental status: baseline Post-Op hydration status: normal Vital Signs: Last Vital Signs Temp 36.5 C 10/02/21 07:45 Pulse 65 10/02/21 07:45 Resp 18 10/02/21 07:45 BP 102/67 10/02/21 07:45 Pulse Ox 100 10/02/21 07:45 Pain score (VAS): 06/12 I/O: Intake & Output 10/01/21 10/02/21 10/02/21 23:59 07:59 15:59 Intake Total 1260 200 300 Output Total 2100 1050 400 Balance -840 -850 -100 Post-procedural complaints: none Patient feedback: Patient satisfied with anesthetic care.
--- NOTE | 2021-10-02 11:54 | WPDANLDNPN2 ---
Anes-Prog Note L&D-Neuraxial Date/Time: 10/02/21 11:54 Neuraxial medications: intrathecal PF morphine Opiod-related complaints: none Patient feedback: Patient satisfied with post-operative pain management.
--- NOTE | 2021-10-02 15:14 | PC.NURSE ---
[id number] Introductions were made, then consulted with patient to assess needs related to . Mother led the conversation with her experience feeding her so far. Mother works well with her with encouragement and education. Encouraged understanding of the benefits of skin to skin (unwrapping and placing vertically on her chest), responsive feeding and how to watch for early feeding signs, frequency of feeding on demand about every 8-12 times in 24 hours (every 2-3 hours), milk production, duration of feeding, signs of adequate intake/output and how to record on the feeding sheet. Reviewed positioning and ear, shoulder, hip alignment, supporting the breast, asymmetrical latch (off-center), and leading with the chin with a big open side gape. Infant latched optimally to the right breast in football position for 10 minutes. Nipple was slightly misshaped and mother encouraged to patiently wait for the big wide open gape for optimal latching. Education given to mother of how to visualize suck/swallow ratios and drinking at the breast. Infant was optimally latched to the left breast using the football position and was able to maintain latch without discomfort to mother. Reviewed the rocking motion of a effective latch and how to visualize the suck/swallow ratios. Nipple care reviewed with optimal latch and good positioning. Reminding mother of comfort measures of healing with a warm and wet washcloth to rinse breast, then leave open to air-dry as needed. Reviewed good handwashing when or touching the breast/nipples to prevent infection. Resources used to facilitate learning were used with the visual handout/mom and baby guide. Mother voiced understanding of responsive feedings, stimulating with skin to skin, hand expressed colostrum, touch, talking to infant to encourage if it has been 2 -3 hours since the start of the last , to call if does not latch or there is discomfort with . Reported to the primary RN.
[2021-10-02 19:00] VITALS: BP 103/62; PULSE 70; RESP 18; TEMP 36.7
[2021-10-03] MEDS: HYDROcodone/acetaminophen (*CRX) 5-325 MG TABLET 1 TAB PO ×3 (01:00→22:59)
[2021-10-03] MEDS: IBUPROFEN 600 MG TABLET PO ×4 (01:01→22:59)
[2021-10-03] MEDS: HYDROcodone/acetaminophen (*CRX) 10-325 MG TABLET 1 TAB PO ×3 (04:46→15:16)
[2021-10-03 07:55] VITALS: BP 110/71; PULSE 76; RESP 18; TEMP 36.6; O2SAT 100
--- NOTE | 2021-10-03 07:55 | PM.OBPNVD ---
OB - PN: Subj Subjective Date/time seen: 10/03/21 07:55 Patient comments: no complaints, incisional pain, tolerating diet and flatus present baby status: nursing well feeding status: exclusively breast feeding OB - PN: Obj Data Labs CBC & Chem 7: 10/02/21 04:16 Labs: Laboratory Results - last 24 hr 10/01/21 10/02/21 03:46 04:21 RPR Non-reactive Blood Type B Negative Antibody Screen TNP Screen Negative Baby's Blood Type B pos Baby's BILL Positive Doses of RhIg Required 1 OB - PN A/P Assessment and Plan (1) delivery delivered: Code(s): O82 - Encounter for delivery without indication Status: Acute Plan day: 2 Plan: routine care Time Spent With Patient Time: Total time spent is greater than 50% in coordination of care (as documented) at patient's floor/unit and/or counseling patient: Exam Narrative: NAD abdomen soft, appropriately tender, incision CDI Extremities nontender with 1+ edema
[2021-10-03] MEDS: MULTIVIT/MIN/PREN/FOL AC/IRON TABLET 1 TAB PO (09:27)
[2021-10-03] MEDS: POLYSACCHARIDE IRON COMPLEX 150 MG CAPSULE PO ×2 (09:27→19:13)
[2021-10-03] MEDS: SIMETHICONE 80 MG TAB.CHEW PO ×2 (09:27→15:16)
[2021-10-03] MEDS: DOCUSATE SODIUM 100 MG CAPSULE PO ×2 (09:27→19:13)
[2021-10-03 09:30] VITALS: PULSE 76; RESP 18; O2SAT 100
[2021-10-03 19:20] VITALS: BP 117/80; PULSE 74; RESP 16; TEMP 36.6; O2SAT 100
[2021-10-04] MEDS: HYDROcodone/acetaminophen (*CRX) 10-325 MG TABLET 1 TAB PO ×2 (02:25→08:30)
--- NOTE | 2021-10-04 07:49 | PM.OBPNVD ---
OB - PN: Subj Subjective Date/time seen: 10/04/21 07:49 Patient comments: no complaints and pain well controlled baby status: doing well [place] feeding status: exclusively breast feeding OB - PN: Obj Data Labs CBC & Chem 7: 10/02/21 04:16 OB - PN A/P Assessment and Plan (1) delivery delivered: Code(s): O82 - Encounter for delivery without indication Status: Acute Plan Plan: routine care and discharge home Time Spent With Patient Time: Total time spent is greater than 50% in coordination of care (as documented) at patient's floor/unit and/or counseling patient: Exam Narrative: NAD abdomen soft, appropriately tender, incision CDI Extremities nontender with 1+ edema
--- NOTE | 2021-10-04 07:53 | PM.DS ---
DS: Admitting Diagnosis Discharge Date 10/04/21 Admitting Diagnosis breech, labor DS: Discharge Diagnosis Discharge Diagnosis (1) delivery delivered: Code(s): O82 - Encounter for delivery without indication Status: Acute DS: Summary Hospital Course Hospital Course: Shirley presented in labor at 38 weeks with breech presentation. She had an uncomplicated section and course. Status at Discharge Functional status at discharge: independent ambulation Time Spent with Patient Time attestation: Total time spent providing and/or coordinating discharge services: Exam Narrative: NAD abdomen soft, appropriately tender, incision CDI Discharge Plan Discharge Attending physician on discharge: Franny Forrest Discharging Clinician: Franny Forrest Anticipated Discharge Date/Time: 10/04/21 07:50 Patient Disposition: Home, Self-Care Activity: may shower and pelvic rest Diet: regular Discharge Instructions: Education: Mom and Baby Guide Given to: Mother Follow-Up: Call your delivering provider's office for an appointment to be seen in: 1 Week Mom and baby should come to the [facility] for the follow-up appointment. Appointment Date/Time: October 05, 2021 at 11:00 am What to expect at your follow-up visit: Blood Pressure Check Physical Assessment Call [phone] if you are unable to keep your appointment time. BREAST CARE: * Wear a snug supportive bra. * For engorgement discomfort: Breast Feeding: * Apply warm moist washcloths * Express milk as needed to relieve engorgement * Wear loose clothing * For sore nipples: * Identify correct latch-on * Apply warm moist washcloths before and after nursing * Air dry nipples after nursing * May apply Lansinoh cream to nipples ABDOMINAL INCISION: (if applicable) * Allow incision to air dry * Do NOT use lotions for powders on your incision * When showering, allow soap and water to run over the incision, but do not wash incision EPISIOTOMY/PERINEAL CARE: * Until bleeding stops, use your charley bottle after urinating * Change your pad frequently throughout the day * You may take sitz baths several times a day (fill your bathtub with warm water and soak for 20 minutes.) Do NOT bathe in the water * No tub baths until seen by your physician - You may shower ACTIVITY: * Rest as much as possible. * Do not exercise or lift anything heavier than your baby (such as laundry or other children.) * Avoid stairs or driving as much as possible. * Do not put anything into the vagina. No douching, tampons, or sexual activity until seen by physician. NOTIFY PHYSICIAN IF YOU HAVE ANY QUESTIONS OR IF ANY OF THE FOLLOWING SYMPTOMS OCCUR: * If your incision becomes red, swollen, or more painful than what you have experienced in the hospital. * If your vaginal bleeding becomes foul smelling. * If your vaginal bleeding becomes more heavy than a period or if your bleeding changes from pink to bright red. However, you may pass an occasional walnut-sized clot once or twice for the first week . * If you experience a sharp, shooting pain in your calves. * If you discover a hard, reddened area on your breast or if you experience flu-like symptoms. DIET: * Eat regular, well-balanced meals. * Drink plenty of fluids daily. If , drink to thirst. Patient Instructions: Antibiotic Form, Caring for Your Baby (DC), (DC) Stand Alone Forms: General Discharge Information Follow-up/Referrals: Franny Forrest MD [Physician] - 1 Week Discharge Medications: New hydrocodone-acetaminophen 5-325 mg Tablet 1 tablet PO Q4-5H PRN (Reason: Moderate Pain (4-6)) Qty: 30 RF: 0 docusate sodium 100 mg Capsule 100 mg PO BID PRN (Reason: constipation) Qty: 60 RF: 1 ibuprofen 600 mg Tablet 600 mg PO Q6H PRN ([place]
[2021-10-04] MEDS: IBUPROFEN 600 MG TABLET PO (08:30)
[2021-10-04] MEDS: MULTIVIT/MIN/PREN/FOL AC/IRON TABLET 1 TAB PO (08:30)
[2021-10-04] MEDS: SIMETHICONE 80 MG TAB.CHEW PO (08:30)
[2021-10-04] MEDS: POLYSACCHARIDE IRON COMPLEX 150 MG CAPSULE PO (08:30)
[2021-10-04] MEDS: DOCUSATE SODIUM 100 MG CAPSULE PO (08:30)
[2021-10-04 08:35] VITALS: BP 128/84; PULSE 68; RESP 18; TEMP 36.4; O2SAT 100
[2021-10-04 09:00] VITALS: PULSE 68; RESP 18; O2SAT 100
--- NOTE | 2021-10-04 16:03 | PC.NURSE ---
[phone] Mother led the conversation with her experience and plan to feed her so far and her ability to independently latch optimally without discomfort. Mother has chosen to bottle feed her infant as well. Reminded parents to use good handwashing technique to prevent infection. Mother is feeding appropriately for growth of infant and understands stimulating to eat if needed. Infant has had appropriate feedings in the last 24 hours meets the outcomes for weight, output and jaundice at this time. Mother states she is confident to continue effectively her at home or when to call for assistance and denies any additional assistance or education at this time. Reinforced understanding of milk production, transition of milk, signs of adequate intake, prevention/relief of engorgement, responsive after visualizing feeding cues, the different methods of stimulating infant to breastfeed 2-3 hours after the start of the last feeding, community resources, medication information reviewed per [employer] and when to call a provider using the resource of the mom and baby guide/[facility] website. Mother voiced understanding of the education shared. Reported to the primary RN.
[2021-10-05 11:25] VITALS: BP 115/79; PULSE 68; RESP 20; TEMP 36.8; O2SAT 100
== END 2021-10-04 13:05 | disposition home or self-care (01) | DRG 788 ==
LOC: ANHLDR 03:14 → ANHOB2 10-03 07:41 → ANHLDR 10-04 16:31 → ANHOB2 10-04 16:31
PROVIDERS: Admitting Provider Obstetrics & Gynecology; Visit Provider Obstetrics & Gynecology
PROC: 10D00Z1 Extraction of Products of Conception, Low, Open Approach (ICD-10-PCS; CPT 59514; principal; 2021-10-01 05:00)
DX: O32.1XX0 Maternal care for breech presentation, not applicable or unspecified (principal); Z3A.38 38 weeks gestation of pregnancy; Z37.0 Single live birth
CPT/HCPCS: 36415; 84112; 85025; 85461; 86592; 86850; 86880; 86900; 86901; 86902; 90384; 90715; A9270; J0690; J1885; J2274; J2370; J2405; J2590; J2765; J2790; J3480; J7120